=== PATIENT | female | born 1945 | race Caucasian/White ===

== ENCOUNTER 2018-06-30 00:04 | Emergency (ER) | payer OTHER, SELFPAY ==
[2018-06-30 00:11] VITALS: BP 117/53; PULSE 68; RESP 20; TEMP 36.8; O2SAT 98
--- NOTE | 2018-06-30 00:19 | DI.CT.S_ITS ---
PROCEDURE: CT ANGIO CHEST PE PROTOCOL INDICATIONS: SOB, near syncope, smoker, hypoxia, hx PE TECHNIQUE: After the administration of intravenous contrast, 2 mm thick sections acquired from the pulmonary apices to the posterior costophrenic angles. 3-dimensional maximum intensity projection (MIP) coronal and sagittal reformats were then acquired through the thorax. For radiation dose reduction, the following was used: automated exposure control, adjustment of mA and/or kV according to patient size. COMPARISON: None. FINDINGS: Image quality: Excellent. Pulmonary arteries: Pulmonary arteries are normal in size, and demonstrate no intraluminal filling defects to suggest central pulmonary embolism. Lungs and pleura: Atelectasis noted in the dependent portion of the lung bases. There is a 6 mm subpleural nodule in the superior segment of the right lower lobe (series 5, image 24.. No pleural effusions or pneumothorax. Central and peripheral airways are patent. Mediastinum: Heart size is normal, without pericardial effusion. 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 No mediastinal or hilar adenopathy. Thoracic aorta is normal in caliber and enhancement. Esophagus is normal in caliber, without hiatal hernia. Bones and chest wall: No suspicious bony lesions. Ribs and thoracic spine appear intact throughout. Spine degenerative disc disease and facet arthropathy.Thyroid gland is absent. No axillary or supraclavicular adenopathy. Abdomen: A 3 cm left adrenal nodule is noted which has density measurements of -3 Hounsfield units compatible with adrenal adenoma. Gallbladder is surgically absent. Right renal cysts are noted. IMPRESSION: 1. No pulmonary embolus. 2. 6 mm nodule in the right lower lobe. Recommend followup CT scan in 6-12 months based on criteria outlined below. 3. 3 cm left adrenal nodule which has imaging characteristics suggestive of benign adrenal adenoma. 4. Atherosclerosis including the coronary vasculature. Fleischner Society criteria for SOLID lung nodule followup. Nodule size (mm)Low-risk patientHigh-risk patient<6 (single or multiple)No routine followup.Optional CT at 12 months. 6-8 (single or multiple)CT at 6-12 months, then optional CT at 18-24 mo.CT at 6-12 months, then CT at 18-24 months. >8 (single)CT at 3 months, PET-CT, or biopsy. Same as for low-risk pts. >8 (multiple)CT at 3-6 months, then optional CT at 18-24 mo.CT at 3-6 months, then CT at 18-24 months. Recommendations do not apply to lung cancer screening, patients with immunosuppression, or patients with known primary cancer. Dictated by: Tara Bonilla MD, PhD on 06/30/2018 at 7:28 Approved by: Tara Bonilla MD, PhD on 06/30/2018 at 7:34
--- NOTE | 2018-06-30 00:29 | ED.URI ---
HPI - URI/Sore Throat General Chief Complaint: Upper Respiratory Symptoms Stated Complaint: Cough Time Seen by Provider: 06/30/18 00:05 Source: patient and EMS Limitations: no limitations History of Present Illness HPI Narrative: 72 year old smoking female presents by aeromedical transport for evaluation of dry cough and calf pain. The patient had been attempting to see her primary care provider due to this dry nonproductive cough over the course of the day. She does not report any chest pain or shortness of breath. During evaluation the patient mentioned that she had calf pain with a squeeze her right calf. She denies any injury nor swelling, redness or warmth. Furthermore, the patient had a strong coughing episode which resulted in a small amount of fecal incontinence as well as some dizziness, sweating and lightheadedness that quickly passed. EMS was activated whom after evaluation then he called [facility]. [facility] have hypoxia, shortness of breath, dizziness or other concerning symptoms. Her primary care provider requested she be transported here for further evaluation. Patient had a pulmonary embolism a few years ago in the aftermath of a knee surgery. She had been on Coumadin temporarily but is no longer anticoagulated MD Complaint: cough Onset (ago): hour(s) Duration: constant Severity: mild Relieving factors: nothing Exacerbating factors: nothing Able to tolerate fluids by mouth: Yes Treatments prior to arrival: none Related Data Previous Rx's Medication Instructions Recorded benzonatate [Tessalon Perles] 100 mg PO QID PRN #20 cap 06/30/18 Allergies Allergy/AdvReac Type Severity Reaction Status Date / Time codeine Allergy Verified 06/30/18 00:13 Review of Systems Review of Systems All systems reviewed & are unremarkable except as noted in HPI and below Constitutional Denies chills, Denies fever(s), Denies lethargy and Denies weakness Eyes Denies change in vision, Denies eye discharge, Denies irritation and Denies loss of vision ENT Ears, Nose, Mouth, and Throat: Denies change in voice, Denies neck pain and Denies sore throat Cardiovascular Denies chest pain, Denies irregular heart rhythm, Denies lightheadedness, Denies palpitations, Denies dyspnea on exertion and Denies orthopnea Comments: near syncope Respiratory Reports cough, Denies dyspnea on exertion and Denies wheezing Gastrointestinal Gastrointestinal: Denies abdominal pain, Denies change in bowel habits, Reports diarrhea, Denies nausea and Denies vomiting Genitourinary Denies hematuria, Denies flank pain, Denies urinary incontinence and Denies urinary urgency Musculoskeletal Denies neck pain Integumentary/Breasts Denies pruritus, Denies erythema, Denies rash and Denies wounds Neurologic Denies confusion, Denies loss of vision and Denies weakness Psychiatric Denies anxiety, Denies confusion, Denies depression, Denies homicidal ideation and Denies suicidal ideation Endocrine Denies palpitations Hematologic/Lymphatic Denies easy bruising Allergic/Immunologic Denies wheezing PFSH Medical History Pulmonary embolism (Acute) Smoking (Acute) Social History Smoking Status: Current every day smoker Exam Narrative Exam Narrative: 72-year-old female arrives by aeromedical transport no obvious distress Initial Vital Signs Initial Vital Signs: Vital Signs Temperature 98.2 F 06/30/18 00:11 Pulse Rate 68 06/30/18 00:11 Respiratory Rate 20 06/30/18 00:11 Blood Pressure 117/53 L 06/30/18 00:11 Pulse Oximetry 98 06/30/18 00:11 Const General: cooperative and well developed Nutritional Appearance: obese Orientation: alert, awake, oriented x3 and not confused HENNY Head: normocephalic and atraumatic Ears: external ears normal and TM's normal bilaterally Nose: external nose normal and No nasal discharge Face and sinus: sinuses nontender, face symmetric, no sinus tenderness and No dry mucous membranes Mouth: oral mucosae normal and moist mucous membranes Teeth and gingiva: dentition normal Throat: tonsils normal and uvula midline Eyes General: appearance normal, both eyes and all related structures Eyelids: eyelids normal Conjunctivae: conjunctivae normal Sclera: sclerae normal Pupils: PERRL EOM: EOM intact bilaterally Neck Neck: normal visual inspection, trachea midline, No lymphadenopathy, No midline deformity and No JVD Lymphatic: No lymphedema Chest Chest: normal inspection of the chest Resp Effort & Inspection: normal respiratory effort, able to speak in complete sentences, no respiratory distress and no use of accessory muscles Auscultation: clear to auscultation bilaterally, no rales, no rhonchi and no wheezes Cardio Rate: regular rate Rhythm: regular rhythm Heart Sounds: no click, no gallops, no murmurs and no rubs Pulses: normal peripheral pulses GI Inspection: non-distended Palpation: soft, no hepatosplenomegaly, No guarding, No pulsatile mass and No tender Auscultation: normal bowel sounds Back/Spine/Pelvis Back: No CVA tenderness Cervical Spine: cervical ROM normal and No pain with cervical ROM Thoracic/Lumbar Spine: thoracic and lumbar spine normal to inspection Skin General: no rashes or lesions noted, No jaundice and No petechiae Neuro General: alert, oriented x3, gait normal and no focal motor deficits Speech: speech normal Extrem General: full ROM, no clubbing, cyanosis or edema, no pedal edema and no calf tenderness Psych Appearance: well kempt Mental Status: mental status grossly normal Attitude: cooperative Thought Content: normal and suicidality Judgment: judgment good Course Orders Ordered: ED Orders 06/30/18 00:19 CT angio chest PE protocol Stat B Type Natriuretic Peptide Stat Basic Metabolic Panel Stat Complete Blood Count AUTO DIFF Stat Procalcitonin Stat Prothrombin Time INR Stat Troponin I Stat EKG-12 Lead Stat Vital Signs - 8 hr 06/30/18 00:11 Temperature 98.2 F Pulse Rate 68 Respiratory Rate 20 Blood Pressure 117/53 L Pulse Oximetry 98 MDM - URI/Sore Throat Differential Diagnosis Differential diagnosis: Likely upper respiratory infection Medical Records Attestation: I reviewed the patient's medical records. Lab Data Result diagrams: 06/30/18 00:31 06/30/18 00:31 Lab Results 06/30/18 06/30/18 06/30/18 Range/Units 00:31 00:31 00:31 WBC 9.1 (4.5-11.0) X10^3/uL RBC 5.03 (4.0-5.2) X10^6/uL Hgb 14.9 (12.0-16.0) g/dL Hct 43.8 (36-46) % MCV 87.2 (80-100) fL MCH 29.7 (26-34) PG MCHC 34.0 (30-36) % RDW 14.9 H (11.6-14.8) % Plt Count 212 (150-400) X10^3/uL Neut % (Auto) 85.7 H (50-75) % Lymph % (Auto) 10.5 L (25-40) % [place] % (Auto) 2.7 L (3-14) % Eos % (Auto) 0.6 L (2-4) % Baso % (Auto) 0.5 (0-2) % Neut # (Auto) 7800 H (9061-2240) /uL PT 12.4 (10.1-12.7) SECONDS INR 1.1 (0.9-1.3) Sodium 139 (137-145) mmol/L Potassium 4.0 (3.4-5.1) mmol/L Chloride 102 (98-107) mmol/L Carbon Dioxide 27 (22-32) mmol/L BUN 20 H (7-17) mg/dL Creatinine 0.80 (0.52-1.04) mg/dL Estimated GFR > 60.0 (>60) mL/min BUN/Creatinine Ratio 25.0 H (6-22) Glucose 155 H (80-110) mg/dL Calcium 9.1 (8.4-10.2) mg/dL Troponin I < 0.012 (0.01-0.034) ng/mL B-Natriuretic Peptide 55.2 (<100) Procalcitonin (<0.5) ng/mL 06/30/18 Range/Units 00:31 WBC (4.5-11.0) X10^3/uL RBC (4.0-5.2) X10^6/uL Hgb (12.0-16.0) g/dL Hct (36-46) % MCV (80-100) fL MCH (26-34) PG MCHC (30-36) % RDW (11.6-14.8) % Plt Count (150-400) X10^3/uL Neut % (Auto) (50-75) % Lymph % (Auto) (25-40) % [place] % (Auto) (3-14) % Eos % (Auto) (2-4) % Baso % (Auto) (0-2) % Neut # (Auto) (9092-8980) /uL PT (10.1-12.7) SECONDS INR (0.9-1.3) Sodium (137-145) mmol/L Potassium (3.4-5.1) mmol/L Chloride (98-107) mmol/L Carbon Dioxide (22-32) mmol/L BUN (7-17) mg/dL Creatinine (0.52-1.04) mg/dL Estimated GFR (>60) mL/min BUN/Creatinine Ratio (6-22) Glucose (80-110) mg/dL Calcium (8.4-10.2) mg/dL Troponin I (0.01-0.034) ng/mL B-Natriuretic Peptide (<100) Procalcitonin < 0.05 (<0.5) ng/mL ECG Data Attestation: I personally reviewed and interpreted this ECG as follows: Prior ECG tracings: not available for review Interpretation: EKG is normal sinus rhythm rate [ ] and free of any signs of ischemia or ectopy. No ST segmental elevation or depression. No T wave inversions Discharge Plan Departure Patient Disposition: Home Clinical Impression: Cough Discharge Date/Time: 06/30/18 03:43 Interventions: ED Discharge Assessment Last Done: 06/30/18 03:38 Instructions: DI for Cough -- Adult Activity Restrictions/Additional Instructions: *You have been diagnosed with [ cough ] *What to do: *Continue to take medications as directed *Follow up with your primary care provider in 2-3 days, call for an appointment. Let them know you were seen in the Emergency Department and that we ask that you be seen in follow up. Your cough was evaluated and Pulmonary Embolism, Pneumonia, and other ominous causes of cough were considered and ruled out. Your Chest CT notes some lymph nodes that are mildly enlarged and some enlargement of your left adrenal gland which will need to be followed on a nonemergent basis. *Return to ER if you should have any new, worsening or concerning symptoms, such as [ ] Prescriptions: New benzonatate [Tessalon Perles] 100 mg capsule 100 mg PO QID PRN (Reason: cough) Qty: 20 RF: 0 Referrals: Hung Fields MD [Primary Care Provider] -
--- NOTE | 2018-06-30 00:32 | ED_ITS ---
HPI - URI/Sore Throat General Chief Complaint: Upper Respiratory Symptoms Stated Complaint: Cough Time Seen by Provider: 06/30/18 00:05 Source: patient and EMS Limitations: no limitations History of Present Illness HPI Narrative: 72 year old smoking female presents by aeromedical transport for evaluation of dry cough and calf pain. The patient had been attempting to see her primary care provider due to this dry nonproductive cough over the course of the day. She does not report any chest pain or shortness of breath. During evaluation the patient mentioned that she had calf pain with a squeeze her right calf. She denies any injury nor swelling, redness or warmth. Furthermore , the patient had a strong coughing episode which resulted in a small amount of fecal incontinence as well as some dizziness, sweating and lightheadedness that quickly passed. EMS was activated whom after evaluation then he called [facility]. At no point with the paramedics or [facility] the patient have hypoxia, shortness of breath, dizziness or other concerning symptoms. Her primary care provider requested she be transported here for further evaluation. Patient had a pulmonary embolism a few years ago in the aftermath of a knee surgery. She had been on Coumadin temporarily but is no longer anticoagulated MD Complaint: cough Onset (ago): hour(s) Duration: constant Severity: mild Relieving factors: nothing Exacerbating factors: nothing Able to tolerate fluids by mouth: Yes Treatments prior to arrival: none Related Data Previous Rx's Medication Instructions Recorded benzonatate [Tessalon Perles] 100 mg PO QID PRN #20 cap 06/30/18 Allergies Allergy/AdvReac Type Severity Reaction Status Date / Time codeine Allergy Verified 06/30/18 00:13 Review of Systems Review of Systems All systems reviewed & are unremarkable except as noted in HPI and below Constitutional Denies chills, Denies fever(s), Denies lethargy and Denies weakness Eyes Denies change in vision, Denies eye discharge, Denies irritation and Denies loss of vision ENT Ears, Nose, Mouth, and Throat: Denies change in voice, Denies neck pain and Denies sore throat Cardiovascular Denies chest pain, Denies irregular heart rhythm, Denies lightheadedness, Denies palpitations, Denies dyspnea on exertion and Denies orthopnea Comments: near syncope Respiratory Reports cough, Denies dyspnea on exertion and Denies wheezing Gastrointestinal Gastrointestinal: Denies abdominal pain, Denies change in bowel habits, Reports diarrhea, Denies nausea and Denies vomiting Genitourinary Denies hematuria, Denies flank pain, Denies urinary incontinence and Denies urinary urgency Musculoskeletal Denies neck pain Integumentary/Breasts Denies pruritus, Denies erythema, Denies rash and Denies wounds Neurologic Denies confusion, Denies loss of vision and Denies weakness Psychiatric Denies anxiety, Denies confusion, Denies depression, Denies homicidal ideation and Denies suicidal ideation Endocrine Denies palpitations Hematologic/Lymphatic Denies easy bruising Allergic/Immunologic Denies wheezing PFSH Medical History Pulmonary embolism (Acute) Smoking (Acute) Social History Smoking Status: Current every day smoker Exam Narrative Exam Narrative: 72-year-old female arrives by aeromedical transport no obvious distress Initial Vital Signs Initial Vital Signs: Vital Signs Temperature 98.2 F 06/30/18 00:11 Pulse Rate 68 06/30/18 00:11 Respiratory Rate 20 06/30/18 00:11 Blood Pressure 117/53 L 06/30/18 00:11 Pulse Oximetry 98 06/30/18 00:11 Const General: cooperative and well developed Nutritional Appearance: obese Orientation: alert, awake, oriented x3 and not confused HENDC Head: normocephalic and atraumatic Ears: external ears normal and TM's normal bilaterally Nose: external nose normal and No nasal discharge Face and sinus: sinuses nontender, face symmetric, no sinus tenderness and No dry mucous membranes Mouth: oral mucosae normal and moist mucous membranes Teeth and gingiva: dentition normal Throat: tonsils normal and uvula midline Eyes General: appearance normal, both eyes and all related structures Eyelids: eyelids normal Conjunctivae: conjunctivae normal Sclera: sclerae normal Pupils: PERRL EOM: EOM intact bilaterally Neck Neck: normal visual inspection, trachea midline, No lymphadenopathy, No midline deformity and No JVD Lymphatic: No lymphedema Chest Chest: normal inspection of the chest Resp Effort & Inspection: normal respiratory effort, able to speak in complete sentences, no respiratory distress and no use of accessory muscles Auscultation: clear to auscultation bilaterally, no rales, no rhonchi and no wheezes Cardio Rate: regular rate Rhythm: regular rhythm Heart Sounds: no click, no gallops, no murmurs and no rubs Pulses: normal peripheral pulses GI Inspection: non-distended Palpation: soft, no hepatosplenomegaly, No guarding, No pulsatile mass and No tender Auscultation: normal bowel sounds Back/Spine/Pelvis Back: No CVA tenderness Cervical Spine: cervical ROM normal and No pain with cervical ROM Thoracic/Lumbar Spine: thoracic and lumbar spine normal to inspection Skin General: no rashes or lesions noted, No jaundice and No petechiae Neuro General: alert, oriented x3, gait normal and no focal motor deficits Speech: speech normal Extrem General: full ROM, no clubbing, cyanosis or edema, no pedal edema and no calf tenderness Psych Appearance: well kempt Mental Status: mental status grossly normal Attitude: cooperative Thought Content: normal and suicidality Judgment: judgment good Course Orders Ordered: ED Orders 06/30/18 00:19 CT angio chest PE protocol Stat B Type Natriuretic Peptide Stat Basic Metabolic Panel Stat Complete Blood Count AUTO DIFF Stat Procalcitonin Stat Prothrombin Time INR Stat Troponin I Stat EKG-12 Lead Stat Vital Signs - 8 hr 06/30/18 00:11 Temperature 98.2 F Pulse Rate 68 Respiratory Rate 20 Blood Pressure 117/53 L Pulse Oximetry 98 MDM - URI/Sore Throat Differential Diagnosis Differential diagnosis: Likely upper respiratory infection Medical Records Attestation: I reviewed the patient's medical records. Lab Data Result diagrams: 06/30/18 00:31 06/30/18 00:31 Lab Results 06/30/18 06/30/18 06/30/18 Range/Units 00:31 00:31 00:31 WBC 9.1 (4.5-11.0) X10^3/uL RBC 5.03 (4.0-5.2) X10^6/uL Hgb 14.9 (12.0-16.0) g/dL Hct 43.8 (36-46) % MCV 87.2 (80-100) fL MCH 29.7 (26-34) PG MCHC 34.0 (30-36) % RDW 14.9 H (11.6-14.8) % Plt Count 212 (150-400) X10^3/uL Neut % (Auto) 85.7 H (50-75) % Lymph % (Auto) 10.5 L (25-40) % [place] % (Auto) 2.7 L (3-14) % Eos % (Auto) 0.6 L (2-4) % Baso % (Auto) 0.5 (0-2) % Neut # (Auto) 7800 H (0520-8553) /uL PT 12.4 (10.1-12.7) SECONDS INR 1.1 (0.9-1.3) Sodium 139 (137-145) mmol/L Potassium 4.0 (3.4-5.1) mmol/L Chloride 102 (98-107) mmol/L Carbon Dioxide 27 (22-32) mmol/L BUN 20 H (7-17) mg/dL Creatinine 0.80 (0.52-1.04) mg/dL Estimated GFR > 60.0 (>60) mL/min BUN/Creatinine Ratio 25.0 H (6-22) Glucose 155 H (80-110) mg/dL Calcium 9.1 (8.4-10.2) mg/dL Troponin I < 0.012 (0.01-0.034) ng/mL B-Natriuretic Peptide 55.2 (<100) Procalcitonin (<0.5) ng/mL 06/30/18 Range/Units 00:31 WBC (4.5-11.0) X10^3/uL RBC (4.0-5.2) X10^6/uL Hgb (12.0-16.0) g/dL Hct (36-46) % MCV (80-100) fL MCH (26-34) PG MCHC (30-36) % RDW (11.6-14.8) % Plt Count (150-400) X10^3/uL Neut % (Auto) (50-75) % Lymph % (Auto) (25-40) % [place] % (Auto) (3-14) % Eos % (Auto) (2-4) % Baso % (Auto) (0-2) % Neut # (Auto) (0591-8880) /uL PT (10.1-12.7) SECONDS INR (0.9-1.3) Sodium (137-145) mmol/L Potassium (3.4-5.1) mmol/L Chloride (98-107) mmol/L Carbon Dioxide (22-32) mmol/L BUN (7-17) mg/dL Creatinine (0.52-1.04) mg/dL Estimated GFR (>60) mL/min BUN/Creatinine Ratio (6-22) Glucose (80-110) mg/dL Calcium (8.4-10.2) mg/dL Troponin I (0.01-0.034) ng/mL B-Natriuretic Peptide (<100) Procalcitonin < 0.05 (<0.5) ng/mL ECG Data Attestation: I personally reviewed and interpreted this ECG as follows: Prior ECG tracings: not available for review Interpretation: EKG is normal sinus rhythm rate [ ] and free of any signs of ischemia or ectopy. No ST segmental elevation or depression. No T wave inversions Discharge Plan Departure Patient Disposition: Home Clinical Impression: Cough Discharge Date/Time: 06/30/18 03:43 Interventions: ED Discharge Assessment Last Done: 06/30/18 03:38 Instructions: DI for Cough -- Adult Activity Restrictions/Additional Instructions: *You have been diagnosed with [ cough ] *What to do: *Continue to take medications as directed *Follow up with your primary care provider in 2-3 days, call for an appointment. Let them know you were seen in the Emergency Department and that we ask that you be seen in follow up. Your cough was evaluated and Pulmonary Embolism, Pneumonia, and other ominous causes of cough were considered and ruled out. Your Chest CT notes some lymph nodes that are mildly enlarged and some enlargement of your left adrenal gland which will need to be followed on a nonemergent basis. *Return to ER if you should have any new, worsening or concerning symptoms , such as [ ] Prescriptions: New benzonatate [Tessalon Perles] 100 mg capsule 100 mg PO QID PRN (Reason: cough) Qty: 20 RF: 0 Referrals: Hung Fields MD [Primary Care Provider] -
[2018-06-30 00:49] LABS: Add Manual Diff / Slide Review NO; Basophils Percent Auto 0.5 % (0-2); Eosinophils Percent Auto 0.6 % (2-4); Hematocrit 43.8 % (36-46); Hemoglobin 14.9 g/dL (12.0-16.0); Lymphocytes Percent Auto 10.5 % (25-40); Mean Corpuscular Hemoglobin 29.7 PG (26-34); Mean Corpuscular Volume 87.2 fL (80-100); Monocytes Percent Auto 2.7 % (3-14); Neutrophils Absolute Auto 7800 /uL (3000-5900); Neutrophils Percent Auto 85.7 % (50-75); Platelet Count 212 X10^3/uL (150-400); Red Blood Cell Count 5.03 X10^6/uL (4.0-5.2); Red Cell Distribution Width 14.9 % (11.6-14.8); White Blood Cell Count 9.1 X10^3/uL (4.5-11.0)
[2018-06-30 00:50] LABS: INR 1.1 (0.9-1.3); Prothrombin Time 12.4 SECONDS (10.1-12.7)
[2018-06-30 00:57] LABS: Blood Urea Nitrogen 20 mg/dL (7-17); Calcium 9.1 mg/dL (8.4-10.2); Carbon Dioxide 27 mmol/L (22-32); Chloride 102 mmol/L (98-107); Estimated Glomerular Filt Rate > 60.0 mL/min (>60); Glucose 155 mg/dL (80-110); HEMOLYSIS < 15 (0-50); Sodium 139 mmol/L (137-145)
[2018-06-30 01:06] LABS: B Type Natriuretic Peptide 55.2 (<100)
[2018-06-30 01:09] LABS: Troponin I < 0.012 ng/mL (0.01-0.034)
[2018-06-30 01:12] LABS: Procalcitonin < 0.05 ng/mL (<0.5)
[2018-06-30 03:38] VITALS: BP 139/75; PULSE 68; RESP 14; O2SAT 99
--- NOTE | 2018-06-30 03:40 | PC.NURSE ---
EMS placed IV would not flush for PE study. IV discontinued. Tip in tact. gauze and tape placed on site.
== END 2018-06-30 03:43 | disposition home or self-care (01) ==
PROVIDERS: Emergency Provider Emergency Medicine; Family Provider Family Medicine; PCP Family Medicine
DX: R05 Cough (principal)
CPT/HCPCS: 36415; 71275; 80048; 83880; 84145; 84484; 85025; 85610; 93005; 93010; 99282; 99285; Q9967

== ENCOUNTER 2019-05-01 14:43 | Emergency (ER) | payer OTHER, SELFPAY ==
[2019-05-01 14:52] VITALS: BP 134/81; PULSE 74; RESP 17; TEMP 36.8; O2SAT 98
--- NOTE | 2019-05-01 16:21 | PC.NURSE ---
Pt has an area on right buttock that is pink,darker red and in the middle it has some yellow drainage. Approx 4inches [id number]
[2019-05-01] MEDS: LIDOCAINE 1% (PF) 4 ML SUBCUT (16:28)
[2019-05-01 16:48] VITALS: BP 134/80; PULSE 53; RESP 18; O2SAT 99
--- NOTE | 2019-05-01 23:33 | ED.WOUNDLAC ---
HPI - Wound/Laceration <FIOR GonzalezP - Last Filed: 05/01/19 23:55> General Chief Complaint: Wound/Laceration Stated Complaint: states she has an infection and open wound her hip Time Seen by Provider: 05/01/19 15:24 Source: patient Mode of arrival: Ambulatory Limitations: no limitations History of Present Illness HPI narrative: This is a 73-year-old female, smoker, presents to ED with right hip lump and pain after she had completed a course of Bactrim DS. She is currently taking clindamycin since April 29. She complains of right hip pain, swelling, warmth, redness after she got injections such as Benadryl and Solu-Medrol unaffected side after she had an allergy reaction on 04/19/19 and developed cellulitis on 04/22/19. She denies fever, chills, nausea or vomiting. Patient reports the pain has been improving after the affected side started to drain. She came in to ED with skin charles that was drawn from [facility] provider which is now reduced slightly. She denies history of diabetes. Related Data Home Medications Medication Instructions Recorded Confirmed clindamycin HCl 300 mg PO Q6H 05/01/19 05/01/19 fluoxetine 20 mg PO DAILY 05/01/19 05/01/19 levothyroxine 88 mcg PO DAILY 05/01/19 05/01/19 methotrexate sodium See Rx Instructions .ROUTE .COMPLEX 05/01/19 05/01/19 thyroid (pork) 60 mg PO DAILY 05/01/19 05/01/19 Allergies Allergy/AdvReac Type Severity Reaction Status Date / Time codeine Allergy Verified 06/30/18 00:13 Review of Systems <Ravinder Crum [employer]ATOR - Last Filed: 05/01/19 23:55> Review of Systems Narrative: General: See HPI HEENT: Denies sinus pain, ear pain, sore throat, difficulty swallowing, dizziness. Respiratory: Denies dyspnea, cough, wheezing, hemoptysis, sputum. Cardiovascular: Denies chest pain, palpitations, orthopnea, edema. Gastrointestinal: Denies nausea, vomiting, abdominal pain, diarrhea, constipation, melena. : Denies dysuria, frequency, incontinence, hematuria, urinary retention. Musculoskeletal: Denies weakness, joint pain or bony pain. Skin: Hard lump on right hip, pain has been improving after draining started. Neurologic: Denies weakness, headache, numbness, change in speech, confusion, seizures, incoordination. Psychiatric: No concerning psychosocial issues. 12-point review of systems is negative except for those stated above. PFSH <NEETA Gonzalez - Last Filed: 05/01/19 23:55> Medical History Pulmonary embolism (Acute) Smoking (Acute) Social History (Updated 06/30/18 @ 00:56 by Cipriano Reynoso DO) Smoking Status: Current every day smoker Social History Smoking Status: Current every day smoker Exam <NEETA Gonzalez - Last Filed: 05/01/19 23:55> Narrative Exam Narrative: General appearance: well developed, well nourished, in no acute distress. Head: normocephalic, atraumatic, no scalp lesions, non-tender. Eye: pupil equal, round. EOMI. Nose: nares patent. Oral: mucosa moist. Neck/Thyroid: neck supple, full range of motion, no visible masses. Heart: no clubbing, no cyanosis, no edema. Lungs: Breathing even and unlabored. No stridor. No accessory muscles used. Chest: normal shape and expansion. Abdomen: non-obese, non-distended. Neurologic: alert and oriented. Cognitive exam, BOX STRAPPER and PNS grossly intact on informal exam. Psych: good eye contact, normal affect. Initial Vital Signs Initial Vital Signs: Vital Signs Temperature 98.3 F 05/01/19 14:52 Pulse Rate 74 05/01/19 14:52 Respiratory Rate 17 05/01/19 14:52 Blood Pressure 134/81 05/01/19 14:52 Pulse Oximetry 98 05/01/19 14:52 Skin General: ecchymosis, erythema, induration and warm Lesions: lesion noted Right posterior hip size, consistency (about 5cm diameter of induration), tender and other (Draining serosanguineous fluid on a got) <Tori Mock DO - Last Filed: 05/02/19 08:34> Initial Vital Signs Initial Vital Signs: Vital Signs Temperature 98.3 F 05/01/19 14:52 Pulse Rate 74 05/01/19 14:52 Respiratory Rate 17 05/01/19 14:52 Blood Pressure 134/81 05/01/19 14:52 Pulse Oximetry 98 05/01/19 14:52 Procedures <NEETA Gonzalez - Last Filed: 05/01/19 23:55> Abscess I/D Site: lower extremity (Right posterior hip) Side (if applicable): right Local Anesthetic: lidocaine 2% Amount of anesthesia used (mL): 4 Technique: incised with #11 blade Amount of fluid expressed (mL): 20 (Clear and serosanguineous without much prolonged discharge drainage.) Irrigation: Yes Packing used?: plain Complications: other (None, patient reports feeling better after I&D) Course <NEETA Gonzalez - Last Filed: 05/01/19 23:55> Orders Ordered: Discontinued Medications Lidocaine HCl (Xylocaine 1% (Pf)) 4 ml SUBCUT NOW ONE Stop: 05/01/19 16:05 Last Admin: 05/01/19 16:28 Dose: 4 ml Documented by: CRESCENCIO Vital Signs Vital signs: Vital Signs - 8 hr 05/01/19 16:48 Pulse Rate 53 L Respiratory Rate 18 Blood Pressure [Left Arm] 134/80 Pulse Oximetry 99 <Tori Mock DO - Last Filed: 05/02/19 08:34> Orders Ordered: Discontinued Medications Lidocaine HCl (Xylocaine 1% (Pf)) 4 ml SUBCUT NOW ONE Stop: 05/01/19 16:05 Last Admin: 05/01/19 16:28 Dose: 4 ml Documented by: CRESCENCIO Vital Signs Vital signs: Vital Signs - 8 hr 05/01/19 16:48 Pulse Rate 53 L Respiratory Rate 18 Blood Pressure [Left Arm] 134/[address] [facility] - Wound/Laceration <NEETA Gonzalez - Last Filed: 05/01/19 23:55> Differential Diagnosis Differential diagnosis: Likely abscess Medical Records Attestation: I reviewed the patient's medical records. [facility] Narrative Medical decision making narrative: This is a 73-year-old female who presents to ED right hip cellulitis and abscess. She had developed cellulitis/abscess since 04/22/19 after the IM injections of Benadryl and Solu-Medrol on 04/19 for allergy reaction. She was initially treated with a course of Bactrim DS but her symptoms had not resolved completely and she is currently is on 2nd course of antibiotic medication clindamycin since 04/29/19. Patient denies constitutional symptoms. She states pain actually is a bit improved after it started draining. Please see procedural note for I and D. the affected side had about 5 cm tunneling around the middle of the infected site. The site has packed with plain strip gauze. Return precautions were discussed with the patient and patient advised continue with the clindamycin. Patient advised to keep the dressing clean and dry by packing the wound over the weekends. Patient states he has a friend who is a nurse who can assist with this. Patient advised to follow up with her primary care physician on Saturday for wound recheck. Patient verbalized understanding and agrees with treatment plan. She the discomfort is improved after I and D. wound culture was obtained and sent to lab. Discharge Plan Departure Patient Disposition: Home Clinical Impression: Abscess of buttock, right, Encounter for incision and drainage procedure Discharge Date/Time: 05/01/19 17:06 Instructions: DI for Skin Abscess, DI for Incision and Drainage Activity Restrictions/Additional Instructions: You have been diagnosed with [R side buttock Abscess with I & D procedure ]. What to do: *Take your medications as directed. Please continue to take your antibiotic medication and complete this course. You can take [id number] Tylenol or Aleve as needed for discomfort. THe dressing needs to be changed with packing every day and please use warm pack about 5 to 6 times a day for 20-30 minutes at a time. This will help with healing. *Follow up with your primary care provider in 2-3 days for wound recheck call for an appointment. Let them know you were seen in the ED and that we asked you to be seen in follow up. *Return to ED if you have any new, worsening, or concerning symptoms, such as [worsening pain, fever, chest pain, breathing difficulty, unable to tolerate fluids, feeling like fainting, or any acute concerns]. Prescriptions: No Action clindamycin HCl 300 mg Capsule 300 mg PO Q6H RF: 0 levothyroxine 88 mcg Tablet 88 mcg PO DAILY RF: 0 methotrexate sodium 2.5 mg Tablet See Rx Instructions .ROUTE .COMPLEX RF: 0 fluoxetine 20 mg Capsule 20 mg PO DAILY RF: 0 thyroid (pork) 60 mg Tablet 60 mg PO DAILY RF: 0 Referrals: Hung Fields MD [Primary Care Provider] -
== END 2019-05-01 17:06 | disposition home or self-care (01) ==
PROVIDERS: Emergency Provider Nurse Practitioner Family; Family Provider Family Medicine; PCP Family Medicine
DX: L02.31 Cutaneous abscess of buttock (principal)
CPT/HCPCS: 10060; 87070; 87075; 87077; 87147; 87186; 87205; 99283

== ENCOUNTER → 2019-05-28 14:04 | Outpatient (CLI) | payer OTHER, SELFPAY | PROVIDERS: Family Provider Family Medicine; PCP Family Medicine; Visit Provider Family Medicine | DX: L02.31 Cutaneous abscess of buttock (principal); Z79.899 Other long term (current) drug therapy; Z72.0 Tobacco use | CPT/HCPCS: 11042; 99203; 99213 ==

== ENCOUNTER → 2021-02-13 13:45 | Outpatient (CLI) | payer MEDICARE, SELFPAY ==
[2021-02-13 20:04] LABS: Alanine Aminotransferase 21 IU/L (<35); Albumin 3.6 g/dL (3.5-5.0); Albumin Globulin Ratio 1.3 (1.0-2.8); Alkaline Phosphatase 102 U/L (38-126); Aspartate Aminotransferase 26 IU/L (14-36); BUN Creatinine Ratio 19.1 (6-22); Bilirubin Total 0.8 mg/dL (0.2-1.3); Blood Urea Nitrogen 13 mg/dL (7-17); Calcium 9.4 mg/dL (8.4-10.2); Carbon Dioxide 26 mmol/L (22-32); Chloride 101 mmol/L (98-107); Estimated Glomerular Filt Rate > 60.0 mL/min (>60); Globulin 2.8 g/dL (1.7-4.1); Glucose 76 mg/dL (80-110); HEMOLYSIS 36 (0-50); Potassium 4.4 mmol/L (3.4-5.1); Sodium 135 mmol/L (137-145); Total Protein 6.4 g/dL (6.3-8.2)
== END ==
PROVIDERS: Family Provider Family Medicine; PCP Physician Assistant; Visit Provider Physician Assistant
DX: E03.9 Hypothyroidism, unspecified (principal); R32 Unspecified urinary incontinence; R42 Dizziness and giddiness
CPT/HCPCS: 80053; 84443

== ENCOUNTER → 2022-02-06 13:48 | Outpatient (CLI) | payer MEDICARE, SELFPAY ==
[2022-02-07 22:10] LABS: Free T4, Direct Thyroxine 1.04 ng/dL (0.78-2.19)
== END ==
PROVIDERS: Family Provider Family Medicine; PCP Physician Assistant; Visit Provider Physician Assistant
DX: E03.9 Hypothyroidism, unspecified (principal)
CPT/HCPCS: 84439; 84443

== ENCOUNTER → 2022-06-29 15:25 | Outpatient (CLI) | payer MEDICARE, SELFPAY ==
--- NOTE | 2022-06-29 15:26 | DI.MRI.S_ITS ---
PROCEDURE: MR LUMBAR SPINE WO/W CON INDICATIONS: injury to back with abnormal xray: L3 endplate 06/26/22 TECHNIQUE: Noncontrast sagittal T1 spin echo and T2 fast spin echo, sagittal STIR, axial T1 and T2 fast spin echo through the lumbar spine. In cases with scoliosis, additional coronal T2 fast spin echo may be performed. After the administration of contrast, sagittal and axial T1 spin echo with fat saturation through the lumbar spine. COMPARISON: [facility] ([place]), CR, XR LUMBAR SPINE 2-3V, 06/26/2022, 15:58. FINDINGS: Image quality: This study is limited by body habitus. This examination is limited by involuntary motion artifact. Alignment and curvature: There is normal bony alignment. Marrow: Marrow is of normal overall signal. No acute vertebral body compression fractures. No suspicious marrow enhancement. Spinal cord: Conus medullaris terminates at the L1-L2 level. Visualized spinal cord demonstrates normal signal, without suspicious enhancement. Paraspinous soft tissues: No paravertebral masses or abnormal enhancement. This patient has transitional lumbar anatomy. For the purposes of this examination, the level with the most inferior visualized disc space is considered to be L5-S1. By this numbering scheme, the small ribs are seen at the T12 level. Please note that this numbering scheme differs by 1 level from the plain film study dated 06/26/2022. T12-L1: Normal appearance. L1-L2: Moderate loss of disc height is seen. Loss of disc signal is seen. Mild generalized disc bulge is seen. Moderate bilateral neural foraminal narrowing is seen at this level. No significant central canal narrowing is seen. L2-L3: Moderate loss of disc height is seen. Loss of disc signal is seen. Moderate generalized disc bulge is seen. Moderate facet joint hypertrophy is seen. Associated hypertrophy of the ligamentum flavum can be seen. Mild to moderate bilateral neural foraminal narrowing can be seen. Moderate central canal narrowing is seen. L3-L4: At least moderate loss of disc height and disc signal can be seen. Moderate generalized disc bulge is seen. Moderate facet joint hypertrophy is seen. Associated hypertrophy of the ligamentum flavum can be seen. Moderate bilateral neural foraminal narrowing can be seen at this level. Moderate central canal narrowing is seen. L4-L5: Moderate loss of disc height is seen. Loss of disc signal is seen. Moderate generalized disc bulge is seen. Moderate facet joint hypertrophy is seen. No significant neural foraminal narrowing can be seen. Mild central canal narrowing is seen. L5-S1: Moderate to severe loss of disc height and disc signal can be seen. Reactive marrow endplate changes are seen, which are hyperintense on T1-weighted and T2-weighted imaging and most consistent with fatty metaplasia (Modic type II changes). Moderate generalized disc bulge is seen. There is a central/left disc protrusion seen. Mild to moderate facet hypertrophy is seen at this level. Mild bilateral neural foraminal narrowing is seen. No central canal narrowing is seen. 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 IMPRESSION: There is a subacute appearing L2 compression deformity seen, with 20% loss of height. There is mild enhancement seen along the fracture cleft, which is attributed to a reparative response. (Please note that this was described as L3 on the recent prior plain film study. The numbering scheme on this report differs by 1 level from that report.) Multiple levels of lumbar spine degenerative change are seen. Additional findings: Sacral perineural cysts Dictated by: Jesse Velazquez M.D. on 06/29/2022 at 16:13 Approved by: Jesse Velazquez M.D. on 06/29/2022 at 16:20
== END ==
PROVIDERS: Family Provider Family Medicine; PCP Physician Assistant; Referring Provider Physician Assistant; Visit Provider Physician Assistant
DX: S32.029A Unspecified fracture of second lumbar vertebra, initial encounter for closed fracture (principal); M47.816 Spondylosis without myelopathy or radiculopathy, lumbar region; G96.191 Perineural cyst; M54.50 Low back pain, unspecified; R93.7 Abnormal findings on diagnostic imaging of other parts of musculoskeletal system; W19.XXXA Unspecified fall, initial encounter
CPT/HCPCS: 72158

== ENCOUNTER → 2022-10-04 11:36 | Outpatient (CLI) | payer MEDICARE, SELFPAY ==
[2022-10-04 19:13] LABS: Add Manual Diff / Slide Review NO; Basophils Absolute Auto 0 /uL (0-100); Basophils Percent Auto 0.9 % (0-2); Eosinophils Absolute Auto 100 /uL (0-450); Eosinophils Percent Auto 2.5 % (2-4); Hematocrit 41.1 % (36-46); Hemoglobin 13.8 g/dL (12.0-16.0); Lymphocytes Absolute Auto 1700 /uL (1100-4500); Lymphocytes Percent Auto 31.7 % (25-40); Mean Corpuscular HGB Conc 33.5 % (30-36); Mean Corpuscular Hemoglobin 28.8 PG (26-34); Mean Corpuscular Volume 86.1 fL (80-100); Monocytes Absolute Auto 400 /uL (0-900); Monocytes Percent Auto 8.4 % (3-14); Neutrophils Absolute Auto 2900 /uL (1500-7000); Neutrophils Percent Auto 56.5 % (50-75); Platelet Count 221 X10^3/uL (150-400); Red Blood Cell Count 4.77 X10^6/uL (4.0-5.2); Red Cell Distribution Width 15.8 % (11.6-14.8); White Blood Cell Count 5.2 X10^3/uL (4.5-11.0)
[2022-10-04 19:34] LABS: Alanine Aminotransferase 18 IU/L (<35); Albumin 3.6 g/dL (3.5-5.0); Albumin Globulin Ratio 1.3 (1.0-2.8); Alkaline Phosphatase 94 U/L (38-126); Aspartate Aminotransferase 21 IU/L (14-36); Bilirubin Total 0.5 mg/dL (0.2-1.3); Blood Urea Nitrogen 13 mg/dL (7-17); Calcium 8.8 mg/dL (8.4-10.2); Carbon Dioxide 28 mmol/L (22-32); Chloride 103 mmol/L (98-107); Cholesterol 237 mg/dL (140-199); Estimated Glomerular Filt Rate > 60 mL/min (>60); Globulin 2.7 g/dL (1.7-4.1); Glucose 79 mg/dL (80-110); HDL Cholesterol 74 mg/dL (40-60); HEMOLYSIS < 15 (0-50); LDL Cholesterol Calculated 131 mg/dL (<100); Sodium 137 mmol/L (137-145); Total Protein 6.3 g/dL (6.3-8.2); Triglycerides 162 mg/dL (35-150)
[2022-10-04 19:56] LABS: TSH w/ Reflex to FT4 8.16 uIU/mL (0.47-4.68)
[2022-10-04 20:38] LABS: Free T4, Direct Thyroxine 1.63 ng/dL (0.78-2.19)
== END ==
PROVIDERS: Family Provider Family Medicine; PCP Physician Assistant; Visit Provider Physician Assistant
DX: Z79.899 Other long term (current) drug therapy (principal); E03.9 Hypothyroidism, unspecified; E78.5 Hyperlipidemia, unspecified
CPT/HCPCS: 80053; 80061; 84439; 84443; 85025

== ENCOUNTER → 2023-01-10 13:12 | Outpatient (CLI) | payer MEDICARE, SELFPAY ==
[2023-01-10 19:57] LABS: Add Manual Diff / Slide Review NO; Basophils Absolute Auto 100 /uL (0-100); Basophils Percent Auto 0.8 % (0-2); Eosinophils Absolute Auto 100 /uL (0-450); Hematocrit 42.1 % (36-46); Hemoglobin 14.1 g/dL (12.0-16.0); Lymphocytes Absolute Auto 1800 /uL (1100-4500); Lymphocytes Percent Auto 26.9 % (25-40); Mean Corpuscular HGB Conc 33.5 % (30-36); Mean Corpuscular Hemoglobin 29.2 PG (26-34); Mean Corpuscular Volume 87.1 fL (80-100); Monocytes Absolute Auto 500 /uL (0-900); Monocytes Percent Auto 7.3 % (3-14); Neutrophils Absolute Auto 4200 /uL (1500-7000); Platelet Count 246 X10^3/uL (150-400); Red Blood Cell Count 4.83 X10^6/uL (4.0-5.2); Red Cell Distribution Width 15.6 % (11.6-14.8); White Blood Cell Count 6.7 X10^3/uL (4.5-11.0)
[2023-01-10 20:02] LABS: Alanine Aminotransferase 14 IU/L (<35); Albumin 3.9 g/dL (3.5-5.0); Albumin Globulin Ratio 1.3 (1.0-2.8); Alkaline Phosphatase 108 U/L (38-126); Aspartate Aminotransferase 21 IU/L (14-36); Bilirubin Total 0.5 mg/dL (0.2-1.3); Blood Urea Nitrogen 12 mg/dL (7-17); Calcium 8.8 mg/dL (8.4-10.2); Carbon Dioxide 31 mmol/L (22-32); Chloride 102 mmol/L (98-107); Estimated Glomerular Filt Rate > 60 mL/min (>60); Globulin 2.9 g/dL (1.7-4.1); Glucose 80 mg/dL (80-110); HEMOLYSIS 20 (0-50); Lipase 79 U/L (23-300); Potassium 3.8 mmol/L (3.4-5.1); Sodium 139 mmol/L (137-145); Total Protein 6.8 g/dL (6.3-8.2)
[2023-01-10 20:16] LABS: Free T3, Triiodothyronine Free 3.31 pg/mL (2.77-5.27)
[2023-01-10 20:30] LABS: TSH w/ Reflex to FT4 1.82 uIU/mL (0.47-4.68)
== END ==
PROVIDERS: Family Provider Family Medicine; PCP Physician Assistant; Visit Provider Family Medicine
DX: R26.89 Other abnormalities of gait and mobility (principal); R42 Dizziness and giddiness; E03.9 Hypothyroidism, unspecified
CPT/HCPCS: 80053; 83690; 84443; 84481; 85025

== ENCOUNTER → 2023-05-20 14:35 | Outpatient (CLI) | payer MEDICARE, SELFPAY ==
[2023-05-20 19:54] LABS: Add Manual Diff / Slide Review NO; Basophils Absolute Auto 0 /uL (0-100); Basophils Percent Auto 0.6 % (0-2); Eosinophils Absolute Auto 200 /uL (0-450); Eosinophils Percent Auto 2.4 % (2-4); Hematocrit 40.3 % (36-46); Hemoglobin 13.7 g/dL (12.0-16.0); Lymphocytes Absolute Auto 2300 /uL (1100-4500); Lymphocytes Percent Auto 30.1 % (25-40); Mean Corpuscular HGB Conc 34.1 % (30-36); Mean Corpuscular Hemoglobin 29.6 PG (26-34); Mean Corpuscular Volume 86.8 fL (80-100); Monocytes Absolute Auto 600 /uL (0-900); Monocytes Percent Auto 7.4 % (3-14); Neutrophils Absolute Auto 4500 /uL (1500-7000); Neutrophils Percent Auto 59.5 % (50-75); Platelet Count 230 X10^3/uL (150-400); Red Blood Cell Count 4.64 X10^6/uL (4.0-5.2); Red Cell Distribution Width 14.2 % (11.6-14.8); White Blood Cell Count 7.5 X10^3/uL (4.5-11.0)
[2023-05-20 19:55] LABS: Alanine Aminotransferase 12 IU/L (<35); Albumin 3.7 g/dL (3.5-5.0); Albumin Globulin Ratio 1.4 (1.0-2.8); Alkaline Phosphatase 95 U/L (38-126); Aspartate Aminotransferase 20 IU/L (14-36); BUN Creatinine Ratio 21.7 (6-22); Bilirubin Total 0.4 mg/dL (0.2-1.3); Blood Urea Nitrogen 15 mg/dL (7-17); Calcium 9.3 mg/dL (8.4-10.2); Carbon Dioxide 26 mmol/L (22-32); Chloride 102 mmol/L (98-107); Estimated Glomerular Filt Rate > 60 mL/min (>60); Globulin 2.7 g/dL (1.7-4.1); Glucose 71 mg/dL (80-110); HEMOLYSIS < 15 (0-50); Potassium 3.8 mmol/L (3.4-5.1); Sodium 136 mmol/L (137-145); Total Protein 6.4 g/dL (6.3-8.2)
[2023-05-20 20:20] LABS: Free T3, Triiodothyronine Free 2.99 pg/mL (2.77-5.27)
[2023-05-20 20:34] LABS: Thyroid Stimulating Hormone 2.93 uIU/mL (0.47-4.68)
[2023-05-20 21:06] LABS: Folate 7.1 ng/mL (2.76-20.0); Vitamin B12 Reflex MMA if <400 381 pg/mL (239-931)
[2023-05-20 21:09] LABS: Cholesterol 268 mg/dL (140-199); HDL Cholesterol 72 mg/dL (40-60); LDL Cholesterol Calculated 153 mg/dL (<100); Triglycerides 215 mg/dL (35-150)
[2023-05-24 09:57] LABS: Methylmalonic Acid,Serum 352 nmol/L (0-378)
== END ==
PROVIDERS: Family Provider Family Medicine; PCP Family Medicine; Visit Provider Family Medicine
DX: E03.9 Hypothyroidism, unspecified (principal); R41.89 Other symptoms and signs involving cognitive functions and awareness; L40.9 Psoriasis, unspecified; R42 Dizziness and giddiness; R41.3 Other amnesia; E78.5 Hyperlipidemia, unspecified
CPT/HCPCS: 80053; 80061; 82607; 82746; 83921; 84439; 84443; 84481; 85025

== ENCOUNTER → 2023-10-03 14:06 | Outpatient (CLI) | payer MEDICARE, SELFPAY | PROVIDERS: Family Provider Family Medicine; PCP Family Medicine; Visit Provider Family Medicine | DX: R32 Unspecified urinary incontinence (principal); R39.89 Other symptoms and signs involving the genitourinary system | CPT/HCPCS: 87077; 87086; 87186 ==

== ENCOUNTER → 2024-11-17 09:03 | Outpatient (CLI) | payer MEDICARE, SELFPAY ==
[2024-11-17 18:49] LABS: Add Manual Diff / Slide Review NO; Basophils Absolute Auto 100 /uL (0-100); Basophils Percent Auto 0.9 % (0-2); Eosinophils Absolute Auto 200 /uL (0-450); Hematocrit 38.5 % (36-46); Hemoglobin 12.6 g/dL (12.0-16.0); Lymphocytes Absolute Auto 2000 /uL (1100-4500); Lymphocytes Percent Auto 26.7 % (25-40); Mean Corpuscular HGB Conc 32.9 % (30-36); Mean Corpuscular Volume 85.1 fL (80-100); Monocytes Absolute Auto 500 /uL (0-900); Monocytes Percent Auto 6.3 % (3-14); Neutrophils Absolute Auto 4700 /uL (1500-7000); Neutrophils Percent Auto 63.1 % (50-75); Platelet Count 236 X10^3/uL (150-400); Red Blood Cell Count 4.52 X10^6/uL (4.0-5.2); Red Cell Distribution Width 14.7 % (11.6-14.8); White Blood Cell Count 7.4 X10^3/uL (4.5-11.0)
[2024-11-17 19:08] LABS: Alanine Aminotransferase 17 IU/L (<35); Albumin 3.7 g/dL (3.5-5.0); Albumin Globulin Ratio 1.3 (1.0-2.8); Alkaline Phosphatase 107 U/L (38-126); Aspartate Aminotransferase 24 IU/L (14-36); BUN Creatinine Ratio 43.5 (6-22); Bilirubin Total 0.5 mg/dL (0.2-1.3); Blood Urea Nitrogen 27 mg/dL (7-17); Carbon Dioxide 28 mmol/L (22-32); Chloride 103 mmol/L (98-107); Cholesterol 244 mg/dL (140-199); Estimated Glomerular Filt Rate > 60 mL/min (>60); Globulin 2.9 g/dL (1.7-4.1); Glucose 88 mg/dL (70-99); HDL Cholesterol 64 mg/dL (40-60); HEMOLYSIS < 15 (0-50); LDL Cholesterol Calculated 153 mg/dL (<100); Potassium 4.2 mmol/L (3.4-5.1); Sodium 138 mmol/L (137-145); Total Protein 6.6 g/dL (6.3-8.2); Triglycerides 135 mg/dL (35-150)
[2024-11-17 19:41] LABS: Thyroid Stimulating Hormone 13.4 uIU/mL (0.47-4.68)
[2024-11-17 20:00] LABS: Vitamin B12 624 pg/mL (239-931)
== END ==
PROVIDERS: Family Provider Family Medicine; PCP Family Medicine; Visit Provider Family Medicine
DX: E03.9 Hypothyroidism, unspecified (principal); G31.84 Mild cognitive impairment of uncertain or unknown etiology; E66.9 Obesity, unspecified; E78.5 Hyperlipidemia, unspecified; Z13.0 Encounter for screening for diseases of the blood and blood-forming organs and certain disorders involving the immune mechanism; Z13.1 Encounter for screening for diabetes mellitus
CPT/HCPCS: 80053; 80061; 82607; 84443; 85025